=== PATIENT | female | born 1970 | race African-American/Black ===

== ENCOUNTER 2019-01-21 21:39 | Emergency (ER) | payer MEDICAID ==
[~2019-01-21] VITALS: Ht 167.6 cm; Wt 75.7 kg
[2019-01-21 21:54] VITALS: BP 153/93
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
[2019-01-21] MEDS ORDERED: SEROQUEL XR300 MG ORAL (21:59)
[2019-01-21] MEDS ORDERED: SIMVASTATIN10 MG ORAL (21:59)
[2019-01-21] MEDS ORDERED: IBUPROFEN600 MG ORAL (22:12)
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
--- NOTE | 2019-01-21 22:20 | NUR ---
ED Nurse Note: Patient evaluated by ERMD, medicated and cleared for discharge. Patient is ambulatory with steady gait, A&Ox4, no s/s of acute distress. Patient verbalized understanding of discharge instructions. Patient departed with personal belongings. ID band removed.
[2019-01-21 22:23] VITALS: BP 153/93
== END 2019-01-21 22:30 | disposition home or self-care (01) ==
LOC: EMR 22:21
DX: S16.1XXA Strain of muscle, fascia and tendon at neck level, initial encounter (principal); S60.221A Contusion of right hand, initial encounter; I10 Essential (primary) hypertension; V43.52XA Car driver injured in collision with other type car in traffic accident, initial encounter; Y92.410 Unspecified street and highway as the place of occurrence of the external cause
CPT/HCPCS: 99282

== ENCOUNTER 2019-06-07 22:40 | Emergency (ER) | payer MEDICAID ==
[~2019-06-07] VITALS: Ht 167.6 cm; Wt 75.7 kg
[~2019-06-07 22:40] MED LIST: IBUPROFEN600 MG ORAL; SEROQUEL XR300 MG ORAL; SIMVASTATIN10 MG ORAL
[2019-06-07 23:13] VITALS: BP 155/108
--- NOTE | 2019-06-07 23:13 | NUR ---
ED Nurse Note: RIGHT ABDOMINAL PAIN FOR PAST 3 HOURS AT 4/10 AND RADIATING TO RIGHT FLANK AREA. ao4. nad. vss. reports headache
--- NOTE | 2019-06-07 23:37 | Emergency Room Report ---
History of Present Illness General Chief Complaint: Abdominal Pain Source: Patient Present Illness HPI Patient presents with 2 days of abdominal pain. She had some diarrhea today. Been brown in color. She denies any vomiting. Her blood pressure was fluctuating downward at home. The pain is in the right lower quadrant rating up to her right flank. Pain is fairly severe at this time. She has a history of hypertension and takes medication. She denies dysuria at this time. She also had hot flashes today. She states she is perimenopausal and does not believe she is not at this time. Pain is rated 4/10, right lower quadrant right flank. Somewhat positional. Intermittent. Feels aching and sharpness. Patient has a history of anxiety and feels anxious about the pain at this time. No fevers documented, sore throat, chest pain, palpitations, diarrhea, shortness of breath, joint pain, rashes, visual changes, headache. Allergies: Coded Allergies: No Known Allergies (Unverified , 06/07/19) Patient History Past Medical History: see triage record Social History: Reports: smoking Social History Narrative From home Last Menstrual Period: 03-06-2019 Now: No Reviewed Nursing Documentation: PMH: Agreed; PSxH: Agreed Nursing Documentation-PMH Hx Hypertension: Yes History Of Psychiatric Problem: Yes - ANXIETY, DEPRESSION Review of Systems All Other Systems: negative except mentioned in HPI Physical Exam Vital Signs Date Time Temp Pulse Resp B/P (MAP) Pulse Ox O2 Delivery O2 Flow Rate FiO2 06/07/19 22:52 98.6 86 16 155/108 (124) 92 Room Air Sp02 EP Interpretation: reviewed, abnormal - Interpreted as slightly low by me General Appearance: well appearing, no apparent distress, GCS 15 Head: normocephalic Eyes: bilateral eye normal inspection, bilateral eye PERRL ENT: moist mucus membranes Neck: supple Respiratory: lungs clear, normal breath sounds Cardiovascular #1: regular rate, rhythm Cardiovascular #2: 2+ radial (R) Gastrointestinal: normal inspection, normal bowel sounds, soft, no mass, non- distended, no guarding, no rebound, tenderness - Right flank and somewhat right lower quadrant Genitourinary: CVA tenderness (R) Musculoskeletal: back normal, gait/station normal, normal range of motion Neurologic: alert, oriented x3, grossly normal Psychiatric: anxious Skin: no rash Medical Decision Making Diagnostic Impression: Primary Impression: Flank pain ER Course Patient presents with 2 days of bright sided abdominal and flank pain. Differential includes muscle strain, renal stone, pyelonephritis, UTI, appendicitis, diverticulitis amongst others. Evaluation will be with labs. The patient will be treated with IV hydration and analgesia. Ultrasound will be obtained. Ultrasound without hydro-or obvious stones. Labs with normal white count. Urinalysis essentially negative. Patient somewhat improved with treatment. Discussed results with patient and the need for outpatient follow-up. Discussed that if there is worsening that she should return. Consideration for CT of the abdomen if this occurs. The abdomen is benign at this time. Patient stable for outpatient observation and treatment. Laboratory Tests Test 06/07/19 23:40 White Blood Count 7.5 K/UL (4.8-10.8) Red Blood Count 4.74 M/UL (4.20-5.40) Hemoglobin 14.5 G/DL (12.0-16.0) Hematocrit 42.8 % (37.0-47.0) Mean Corpuscular Volume 90 FL (80-99) Mean Corpuscular Hemoglobin 30.7 PG (27.0-31.0) Mean Corpuscular Hemoglobin Concent 34.0 G/DL (32.0-36.0) Red Cell Distribution Width 12.2 % (11.6-14.8) Platelet Count 295 K/UL (150-450) Mean Platelet Volume 5.0 FL (6.5-10.1) L Neutrophils (%) (Auto) 51.9 % (45.0-75.0) Lymphocytes (%) (Auto) 34.0 % (20.0-45.0) Monocytes (%) (Auto) 12.8 % (1.0-10.0) H Eosinophils (%) (Auto) 0.5 % (0.0-3.0) Basophils (%) (Auto) 0.8 % (0.0-2.0) Prothrombin Time 9.9 SEC (9.30-11.50) Prothrombin Time INR 0.9 (0.9-1.1) PTT 30 SEC (23-33) Urine Color Pale yellow Urine Appearance Clear Urine pH 5 (4.5-8.0) Urine Specific Krypton 1.020 (1.005-1.035) Urine Protein Negative (NEGATIVE) Urine Glucose (UA) Negative (NEGATIVE) Urine Ketones Negative (NEGATIVE) Urine Blood 2+ (NEGATIVE) H Urine Nitrite Negative (NEGATIVE) Urine Bilirubin Negative (NEGATIVE) Urine Urobilinogen Normal MG/DL (0.0-1.0) Urine Leukocyte Esterase Negative (NEGATIVE) Urine RBC 2-4 /HPF (0 - 2) H Urine WBC 0-2 /HPF (0 - 2) Urine Squamous Epithelial Cells Moderate /LPF (NONE/OCC) H Urine Bacteria Few /HPF (NONE) Urine Mucus Few /LPF (NONE/OCC) H Urine HCG, Qualitative Negative (NEGATIVE) Sodium Level 141 MMOL/L (136-145) Potassium Level 3.6 MMOL/L (3.5-5.1) Chloride Level 106 MMOL/L (98-107) Carbon Dioxide Level 25 MMOL/L (21-32) Anion Gap 10 mmol/L (5-15) Blood Urea Nitrogen 15 mg/dL (7-18) Creatinine 0.9 MG/DL (0.55-1.30) Estimate Glomerular Filtration Rate > 60 mL/min (>60) Glucose Level 116 MG/DL (74-106) H Calcium Level 9.5 MG/DL (8.5-10.1) Total Bilirubin 0.4 MG/DL (0.2-1.0) Aspartate Amino Transferase (AST) 21 U/L (15-37) Alanine Aminotransferase (ALT) 21 U/L (12-78) Alkaline Phosphatase 77 U/L (46-116) Total Protein 8.3 G/DL (6.4-8.2) H Albumin 4.2 G/DL (3.4-5.0) Globulin 4.1 g/dL Albumin/Globulin Ratio 1.0 (1.0-2.7) Lipase 232 U/L (73-393) EKG Diagnostic Results Rate: normal Rhythm: NSR ST Segments: no acute changes - Left atrial enlargement Rhythm Strip Diag. Results EP Interpretation: yes Rhythm: NSR, no PVC's, no ectopy CT/MRI/US Diagnostic Results CT/MRI/US Diagnostic Results : Imaging Test Ordered: ultrasound renal Impression negative Last Vital Signs Date Time Temp Pulse Resp B/P (MAP) Pulse Ox O2 Delivery O2 Flow Rate FiO2 06/08/19 02:05 98.6 86 16 122/76 92 Room Air Status: improved Disposition: HOME, SELF-CARE Condition: Improved Scripts Ibuprofen* (MOTRIN*) 600 Mg Tablet 600 MG ORAL Q6H PRN for For Pain, #20 TAB 0 Refills Prov: Guido Asher MD 06/08/19 Tramadol Hcl* (ULTRAM*) 50 Mg Tablet 50 MG ORAL Q6H PRN for For Pain, #8 TAB 0 Refills Prov: Guido Asher MD 06/08/19 Referrals: [facility],REFERR[facility] (PCP) Guido Asher MD Jun 07, 2019 23:37
--- NOTE | 2019-06-07 23:40 | NUR ---
ED Nurse Note: IV ACCESS ESTABLISHED. BLOOD AND URINE COLLECTED; SENT DOWN TO LAB.
[2019-06-07] MEDS ORDERED: Acetaminophen 500mg (ES) tab ORAL ONE (23:45)
[2019-06-07] MEDS ORDERED: Ketorolac 30mg Inj IV ONE (23:45)
[2019-06-08 00:06] LABS: BASOPHILS % (AUTO) 0.8 % (0.0-2.0); EOSINOPHILS % (AUTO) 0.5 % (0.0-3.0); HEMATOCRIT 42.8 % (37.0-47.0); HEMOGLOBIN 14.5 G/DL (12.0-16.0); MEAN CORPUSCULAR VOLUME 90 FL (80-99); MONOCYTES % (AUTO) 12.8 % (1.0-10.0); NEUTROPHILS % (AUTO) 51.9 % (45.0-75.0); PLATELET COUNT 295 K/UL (150-450); RED BLOOD COUNT 4.74 M/UL (4.20-5.40); RED CELL DISTRIBUTION WIDTH 12.2 % (11.6-14.8); WHITE BLOOD COUNT 7.5 K/UL (4.8-10.8)
[2019-06-08 00:07] LABS: APPEARANCE,URINE CLEAR; BILIRUBIN, URINE NEGATIVE (NEGATIVE); COLOR,URINE PALE YELLOW; GLUCOSE, URINE (UA) NEGATIVE (NEGATIVE); KETONES,URINE NEGATIVE (NEGATIVE); LEUKOCYTE ESTERASE ,URINE NEGATIVE (NEGATIVE); NITRITE,URINE NEGATIVE (NEGATIVE); PH,URINE 5 (4.5-8.0); PROTEIN,URINE NEGATIVE (NEGATIVE); UROBILINOGEN,URINE NORMAL MG/DL (0.0-1.0)
[2019-06-08 00:17] LABS: ANION GAP 10 mmol/L (5-15); BLOOD UREA NITROGEN 15 mg/dL (7-18); CALCIUM 9.5 MG/DL (8.5-10.1); CARBON DIOXIDE 25 MMOL/L (21-32); CHLORIDE 106 MMOL/L (98-107); CREATININE 0.9 MG/DL (0.55-1.30); POTASSIUM 3.6 MMOL/L (3.5-5.1); SODIUM 141 MMOL/L (136-145)
[2019-06-08 00:19] LABS: INR 0.9 (0.9-1.1)
[2019-06-08 00:21] LABS: ALANINE AMINOTRANSFERASE 21 U/L (12-78); ALBUMIN 4.2 G/DL (3.4-5.0); ALKALINE PHOSPHATASE 77 U/L (46-116); ASPARTATE AMINO TRANSFERASE 21 U/L (15-37); BILIRUBIN,TOTAL 0.4 MG/DL (0.2-1.0)
[2019-06-08 01:40] VITALS: BP 122/76
[2019-06-08] MEDS ORDERED: TRAMADOL HCL50 MG ORAL (01:55)
[2019-06-08] MEDS ORDERED: IBUPROFEN600 MG ORAL (01:55)
[2019-06-08 02:05] VITALS: BP 122/76
--- NOTE | 2019-06-08 02:05 | NUR ---
ER DISCHARGE NOTE: Patient is cleared to be discharged per ERMD, pt is aox4, on room air, with stable vital signs. pt was given dc and prescription instructions, pt was able to verbalize understanding, pt id band and iv site removed without complications. pt is able to ambulate with steady gait. pt took all belongings.
--- NOTE | 2019-06-08 04:14 | Diagnostic Imaging Report ---
Indication: Right flank pain Technique: Grayscale and duplex images of the kidneys, retroperitoneum, and bladder were obtained. Comparison: none Findings: Right kidney measures 11.1 cm in length. Left kidney measures 11.7 cm in length. Both kidneys demonstrate normal echogenicity. No hydronephrosis. No focal abnormality. Normal inferior vena cava. Bladder is normal. Bilateral normal ureteral jets are noted Impression: negative This agrees with the preliminary interpretation provided overnight by [facility] teleradiology service.
--- NOTE | 2019-06-08 19:52 | Cardiology Report ---
APPROVED REPORT EKG Measurement Heart [id number] Normal sinus rhythm Possible Left atrial enlargement Borderline ECG
== END 2019-06-08 02:05 | disposition home or self-care (01) ==
LOC: EMR 23:09
DX: R10.31 Right lower quadrant pain (principal); I10 Essential (primary) hypertension; F41.9 Anxiety disorder, unspecified; F32.9 Major depressive disorder, single episode, unspecified; F17.200 Nicotine dependence, unspecified, uncomplicated
CPT/HCPCS: 36415; 76770; 80053; 81003; 81025; 83690; 85025; 85610; 85730; 93005; 96361; 96374; 99284; J1885

== ENCOUNTER → 2019-06-21 | Emergency (ER) | payer MEDICAID ==
[~2019-06-21] VITALS: Ht 167.6 cm; Wt 75.7 kg
[~2019-06-21] MED LIST changes: +AMLODIPINE BESY10 MG ORAL; +NORCO 5-325 TA1 EACH ORAL; +TRAMADOL HCL50 MG ORAL; +oxyCODONE HCL/Acetaminophen 5/325mg ORAL ONE
[2019-06-21 21:42] VITALS: BP 119/73
--- NOTE | 2019-06-21 21:55 | NUR ---
ED Nurse Note: Patient walked in to Er due to right hand swelling and is painful to touch. Has hx of HTN. Afebrile. No chills. Alert and oriented x4, verbally responsive. Breathing even and unlabored. No SOB. VSS
--- NOTE | 2019-06-21 21:59 | Emergency Room Report ---
History of Present Illness General Chief Complaint: Edema Source: Patient Present Illness HPI Patient presents with several days of right hand pain with some swelling. There was no trauma. She denies any fevers or chills. She denies any arthritis or taking water pills at this time. She is taking Tylenol but the pain still is severe. She is been elevating the hand. there is been swelling in the area for at least 4months. She was evaluated [facility]. They excluded gout. She was told to return at some point if there is pain and they were to aspirate the joint and do further analysis. No x-rays have been performed. No fevers, chills, sore throat, chest pain, palpitations, nausea, vomiting, diarrhea, dysuria, abdominal pain, shortness of breath, rashes, depression, anxiety, visual changes, headache. Allergies: Coded Allergies: No Known Allergies (Unverified , 06/07/19) Patient History Past Medical History: see triage record Social History: Reports: smoking Social History Narrative Now: No Reviewed Nursing Documentation: PMH: Agreed; PSxH: Agreed Nursing Documentation-PMH Past Medical History: No History, Except For Hx Hypertension: Yes Review of Systems All Other Systems: negative except mentioned in HPI Physical Exam Vital Signs Date Time Temp Pulse Resp B/P (MAP) Pulse Ox O2 Delivery O2 Flow Rate FiO2 06/21/19 21:41 98.2 85 14 119/73 (88) 96 Room Air Sp02 EP Interpretation: reviewed, normal General Appearance: well appearing, no apparent distress, GCS 15 Head: normocephalic Eyes: bilateral eye normal inspection, bilateral eye PERRL ENT: moist mucus membranes Neck: full range of motion, supple Respiratory: lungs clear, normal breath sounds Cardiovascular #1: regular rate, rhythm Cardiovascular #2: 2+ radial (R) - Good capillary fill Gastrointestinal: normal inspection Musculoskeletal: gait/station normal, swelling, tenderness - Ring finger MCP with tender passive range of motion of her ring finger there is no warmth at the joint Neurologic: alert, oriented x3, distal neuro normal, grossly normal Psychiatric: mood/affect normal Skin: no rash - No erythema Medical Decision Making Diagnostic Impression: Primary Impression: Right ring finger tendinitis ER Course The patient presents with right ring MCP tenderness and swelling. Differential includes tendinitis, gout, pseudogout, infection. Clinically no infection is present at this time. She is been told she does not have gout. X-rays are indicated. Also the patient will be treated with analgesics. X-ray with calcifications in the area of swelling without fracture. Considerations for possible pseudogout. Volar splint applied by tech. Position is excellent. There is some improvement in pain. Distal neurovascular is checked by me after and normal. Discussed findings with patient and the need for follow-up at [facility]. She was advised to return if the condition is worsening. Patient stable for outpatient observation and treatment. Other X-Ray Diagnostic Results Other X-Ray Diagnostic Results : X-Ray ordered: Right hand # of Views/Limited Vs Complete: 3 View Indication: Other EP Interpretation: Yes Interpretation: no dislocation, no fractures, other - Calcifications near MCP with some soft tissue swelling Impression: Other Electronically Signed by: Electronically signed by Guido Asher MD Last Vital Signs Date Time Temp Pulse Resp B/P (MAP) Pulse Ox O2 Delivery O2 Flow Rate FiO2 06/21/19 21:41 98.2 85 14 119/73 (88) 96 Room Air Status: improved Disposition: HOME, SELF-CARE Condition: Improved Scripts Ibuprofen* (MOTRIN*) 600 Mg Tablet 600 MG ORAL Q6H PRN for For Pain, #20 TAB 0 Refills Prov: Guido Asher MD 06/21/19 Hydrocodone Bit/Acetaminophen 5-325* (NORCO 5-325*) 1 Each Tablet 1 TAB ORAL Q6H PRN for For Pain, #8 TAB 0 Refills Prov: Guido Asher MD 06/21/19 Guido Asher MD Jun 21, 2019 21:59
--- NOTE | 2019-06-21 22:10 | NUR ---
ED Nurse Note: xray at bedside
--- NOTE | 2019-06-21 22:15 | NUR ---
ED Nurse Note: xray completed
--- NOTE | 2019-06-21 22:30 | NUR ---
ED Nurse Note: shahla at bedside
--- NOTE | 2019-06-21 22:43 | Diagnostic Imaging Report ---
EXAM: XR Right Hand Complete, 3 or More Views CLINICAL HISTORY: PAIN TECHNIQUE: Frontal, lateral and oblique views of the right hand. COMPARISON: Mild soft tissue swelling in the digits diffusely of the right hand is suggested. FINDINGS: Bones/joints: There is radiopaque density projecting between the third and fourth MCP joint more medially. This could represent soft tissue tophus. No acute fracture. No dislocation. Soft tissues: Unremarkable. No radiopaque foreign body. IMPRESSION: Diffuse sausagelike swelling of the digits of the right hand with mineralization in the soft tissues near the right fourth MCP joint. Query inflammatory arthropathy such as CPPD or gout.
[2019-06-21 23:14] VITALS: BP 119/73
--- NOTE | 2019-06-21 23:14 | NUR ---
ED Nurse Note: Pt cleared by ERMD for discharge. DC instructions/prescription was given and explained to pt and verbalized understanding of teachings. All medical deviecs such as ID band removed. Pt is AAO x4, ambulatory and left with all personal belongings.
== END | disposition home or self-care (01) ==
LOC: EMR 22:19
DX: M77.8 Other enthesopathies, not elsewhere classified (principal); I10 Essential (primary) hypertension; F17.200 Nicotine dependence, unspecified, uncomplicated
CPT/HCPCS: 29125; 99283